=== PATIENT | male | born 1990 | race Two or more races ===

== ENCOUNTER 2020-11-07 21:49 | Emergency (ER) | payer OTHER ==
[~2020-11-07] VITALS: Ht 167.6 cm; Wt 108.9 kg
== END 2020-11-07 23:00 | disposition home or self-care (01) ==
LOC: ER 21:49
DX: S30.813A Abrasion of scrotum and testes, initial encounter (principal); W45.8XXA Other foreign body or object entering through skin, initial encounter; Y93.89 Activity, other specified; Y92.89 Other specified places as the place of occurrence of the external cause; Y99.8 Other external cause status